=== PATIENT | female | born 1940 | race Caucasian/White ===

== ENCOUNTER 2017-12-07 08:30 | Day surgery (SDC) | payer OTHER, SELFPAY ==
--- NOTE | 2017-12-06 11:56 | POEE_ITS ---
History of Present Illness Chief Complaint: Painless progressive loss of vision, left eye Narrative: The patient is a 77-year-old lady referred by Dr. reed with complaints of progressive decreased vision at both distance and near. She notes significant difficulty with driving at night, as well as glare from sunlight and bright lights. On examination she was noted to have moderate bilateral nuclear cortical and posterior subcapsular cataracts. Of note, she was also noted to have hyperopia with narrow anterior chamber angles and history of glaucoma, currently being treated with latanoprost. NOTE: The Chief Complaint, HPI, Past Medical History, Past Surgical History, Family History, Social History, Medications, and complete Ophthalmic Exam with detailed Assessment and Plan have already been documented in the patient's outpatient ophthalmic exam and are not covered again in detail here. Please see the patient's detailed outpatient ophthalmic exam and/or the History and Physical from the patient's Primary Care Provider. Meds Home Medications Medication Instructions Recorded Confirmed Type Tumeric 1 cap PO DAILY 12/05/17 History albuterol sulfate 2 puff INHALATION Q6H PRN 12/05/17 12/05/17 History aspirin [Aspir-81] 81 mg PO DIRECTED 12/05/17 12/05/17 History atorvastatin 20 mg PO DAILY 12/05/17 12/05/17 History cholecalciferol (vitamin D3) 1,000 unit PO DAILY 12/05/17 12/05/17 History [Vitamin D3] coenzyme Q10 [CoQ-10] 100 mg PO DAILY 12/05/17 12/05/17 History diclofenac sodium [Voltaren] 2 g TOPICAL QID PRN 12/05/17 12/05/17 History dietary supplement 2 cap PO DAILY 12/05/17 12/05/17 History fosinopril 40 mg PO DAILY 12/05/17 12/05/17 History hydrochlorothiazide 12.5 mg PO DAILY 12/05/17 12/05/17 History vitamin B complex 1 cap PO DAILY 12/05/17 12/05/17 History Allergies Allergy/AdvReac Type Severity Reaction Status Date / Time No Known Allergies Allergy Unverified 12/05/17 10:12 Exam OCULAR EXAM:: Visual acuity at distance: 20/40 left eye Pupils: Normally reactive without afferent pupillary defect IOP: 20 OD, 18 OS Extraocular Motility: Normal Pertinent Slit Lamp Findings: Significant for narrow anterior chamber angles, pupils dilate to 5 mm OU. 1+ posterior subcapsular cataracts are present OU. 2 + nuclear and 2+ cortical cataracts are present OU. Dilated Funduscopic Examination: Disc cupping is 0.7 OD, 0.5 OS. The vessels, macula, peripheral retina and vitreous are normal. BRIGHTNESS ACUITY TESTING (BAT):: Off [20/40] Low: 20/50 Medium: 20/60 High: 20/80 Assessment and Plan (1) Cortical cataract of left eye: Current visit: No Status: Acute Assessment: Visually significant cataract, left eye. Plan: Cataract extraction with intraocular lens implantation, left eye (2) Posterior subcapsular age-related cataract of left eye: Current visit: No Status: Acute Assessment: Visually significant cataract, left eye. Plan: Cataract extraction with intraocular lens implantation, left eye (3) Nuclear cataract of left eye: Current visit: No Status: Acute Assessment: Visually significant cataract, left eye. Plan: Cataract extraction with intraocular lens implantation, left eye Note: NOTE:: The details of the planned surgery, including the risks, indications, limitations,expectations,outcome and possible complications were explained to the patient. The patient understands the complications including, but not limited to: infection, hemorrhage, posterior dislocation of the lens or nuclear fragments which may require the intervention of a vitreoretinal surgeon, possible loss of the eye, or from anesthetic complications. The patient has been made aware of the option of not having surgery, that vision following surgery may not be equal to that prior to surgery, and that the planned surgery may not achieve the intended results. Following this discussion, which the patient appeared to understand, the patient wishes to proceed with cataract surgery with lens implantation of the affected eye to improve and maximize vision.
[2017-12-07 09:19] VITALS: BP 182/87; PULSE 70; RESP 16; TEMP 36.6; O2SAT 97
[2017-12-07] MEDS: Lidocaine 2% Jelly 6 ML SYR (11:31)
[2017-12-07] MEDS: Lidocaine 1% Pres-Free 5 ML VIAL (11:39)
[2017-12-07] MEDS: Balanced Salt Soln.-PLUS 500 ML BAG (11:39)
[2017-12-07] MEDS: Povidone-Iodine Ophth 30 ML BTL (12:01)
--- NOTE | 2017-12-07 12:08 | W.PM.DSUDISC ---
Discharge Plan Disposition Patient Disposition: HOME Condition: Good Discharge Details Reason For Visit: CATARACT OS Attending Provider: Sebastian Cosme Primary Care Provider: NO,LOCAL Home Meds and New Rx's Prescriptions: No Action atorvastatin 20 mg Tablet 20 mg PO DAILY RF: 0 aspirin [Aspir-81] 81 mg Tablet,Delayed Release (Dr/Ec) 81 mg PO DIRECTED RF: 0 fosinopril 40 mg Tablet 40 mg PO DAILY RF: 0 hydrochlorothiazide 12.5 mg Capsule 12.5 mg PO DAILY RF: 0 albuterol sulfate 90 mcg/actuation Hfa Aerosol Inhaler 2 puff INHALATION Q6H PRNRF: 0 coenzyme Q10 [CoQ-10] 100 mg Capsule 100 mg PO DAILY RF: 0 diclofenac sodium [Voltaren] 1 % Gel 2 g TOPICAL QID PRNRF: 0 cholecalciferol (vitamin D3) [Vitamin D3] 1,000 unit Capsule 1,000 unit PO DAILY RF: 0 dietary supplement Capsule 2 cap PO DAILY RF: 0 vitamin B complex Capsule 1 cap PO DAILY RF: 0 Tumeric 1 cap PO DAILY RF: 0 Discharge Instructions Stand Alone Forms: Post-op Topical Cataract, Charity Macario (DSU) Discharge Orders Discharge Orders: Discharge Order (Routine); Ordered 12/07/17 Ordered By: Sebastian Cosme DS: Diagnosis Discharge Diagnosis (1) Cortical cataract of left eye: Status: Resolved (2) Posterior subcapsular age-related cataract of left eye: Status: Resolved (3) Nuclear cataract of left eye: Status: Resolved
[2017-12-07 12:28] VITALS: BP 131/77; PULSE 62; RESP 16; TEMP 35.8; O2SAT 94
--- NOTE | 2017-12-07 14:57 | W.PM.OP ---
Date of service: 12/07/17 Time of Service: 15:30 Operative Note Pre-op diagnosis: Cataract, left eye Post-op diagnosis: same Procedure: Cataract extraction using phacoemulsification with intraocular lens implant, left eye Surgeon: Sebastian Cosme Anesthesia: MAC and local (sub-tenon's anesthetic infiltration) Estimated blood loss (mL): 0 Pathology: none sent Complications: None Patient was transported to: same day Patient's condition: stable Implants: Elijah and Elijah / [employer] Tecnis [id number] Indications: Painless progressive vision loss due to cataract, left eye Procedure Description: PREOPERATIVE DIAGNOSIS: Nuclear/cortical/posterior subcapsular cataract, left eye POSTOPERATIVE DIAGNOSIS: Same OPERATION: Cataract extraction using phacoemulsification with posterior chamber intraocular lens implant, left eye. IOL: IOL Curer Foam Rubber/Model: [employer] Tecnis [id number] IOL Power: +22.50 diopters IOL Serial Number: [id number] Optic Diameter: 6.0 mm Haptic/Overall Diameter: 13.0 mm PHACO INFO: [employer] Vision System with OZil and Active Fluidics Cumulative Dispersed Energy (CDE): 5.34 seconds SURGEON: Sebastian Cosme MD, DEVEN ANESTHESIA: Monitored Anesthesia Care (MAC) with local infiltration, monitored by Ld Allen CRNA COMPLICATIONS: None SPECIMENS: None INDICATIONS FOR PROCEDURE: The patient is a 77-year-old lady with history of significant hyperopia and astigmatism who has developed significant bilateral nuclear, cortical, and posterior subcapsular cataract of both eyes. She is significantly symptomatic that she desires cataract surgery in attempt to improve and maximize her vision. PROCEDURE: The correct surgical eye was identified and marked as the left eye and the pupil was dilated in the preoperative area using mydriatics, cycloplegics, and NSAIDS (except in aspirin allergic patients). The dilated pupil size was 7.0 mm. Oral sedation was administered in the form of an Imprimis MKO Melt (midazolam 3mg/ketamine 25mg/ondansetron 2mg). The patient was brought to the operating room where cardiopulmonary monitoring was instituted and surgical time-out was performed, confirming the correct operative eye and IOL power. Topical anesthesia was administered and ophthalmic povidone-iodine 5% was instilled into the conjunctival fornices. The sara-ocular area was prepped with Betadine 10% solution and draped in the usual sterile fashion for intraocular surgery. Steri-strips were used to cover the lashes and lid margins and an adhesive eye drape was placed. Care was taken to isolate the lashes and lid margins under the Steri-strips and adhesive eye drape. A lid speculum was placed between the lids of the operative eye and the Zack-Jasmin operating microscope was swung into place. Baylee scissors were then used to make a conjunctival buttonhole approximately 6mm posterior to the limbus in the inferonasal quadrant. Blunt dissection was carried out to expose bare sclera, and a blunt-tipped sub-tenon?s anesthesia cannula was introduced and passed posteriorly along the globe where non-preserved plain lidocaine was injected into posterior sub-Tenon?s space. A sideport knife was used to make a paracentesis port at the 12 o'clock position. Healon GV was then used to fill the anterior chamber. A 2.4mm keratome knife was used to create a half-thickness groove at the limbus and then to construct a three-plane near-clear corneal tunnel extending 2.0mm into clear cornea at the 3 o'clock position. A flap was raised on the anterior capsule and capsulorhexis forceps were used to complete a continuous curvilinear capsulorhexis of 5.0. Balanced salt solution was then used to perform cortical cleaving hydrodissection and nuclear hydrodelineation until the lens could be freely rotated within the capsular bag. The lens nucleus was then disassembled and removed within the capsular bag and iris plane using phacoemulsification. Residual cortical material was removed using the 45-degree angled silicone I/A tip with 0.3mm port. The posterior capsule was carefully polished to remove as much residual lens epithelial cells as safely possible. The capsular bag was then inflated and the anterior chamber deepened with viscoelastic. The lens implant described above was inserted into the capsular bag using the mana.bo optics levelock injector. A Kuglen hook was used to dial the IOL into position. Residual viscoelastic was then removed using the I/A handpiece, the incisions were stromally hydrated, and the anterior chamber was reformed using BSS. Then 0.4cc of moxifloxacin 1.5mg/ml were injected into the capsular bag and anterior chamber. The lens implant was noted to center nicely within the capsular bag. The incisions were checked with a Weck spear and found to be secure. Several drops of ophthalmic povidone-iodine 5% were then applied to the eye followed by two drops of topical antibiotic. A clear plastic eye shield was placed on the eye. The patient was then returned to Same Day Surgery in stable condition.
--- NOTE | 2017-12-07 15:10 | ROE_ITS ---
Date of service: 12/07/17 Time of Service: 15:30 Operative Note Pre-op diagnosis: Cataract, left eye Post-op diagnosis: same Procedure: Cataract extraction using phacoemulsification with intraocular lens implant, left eye Surgeon: Sebastian Cosme Anesthesia: MAC and local (sub-tenon's anesthetic infiltration) Estimated blood loss (mL): 0 Pathology: none sent Complications: None Patient was transported to: same day Patient's condition: stable Implants: Elijah and Elijah / [employer] Tecnis [id number] Indications: Painless progressive vision loss due to cataract, left eye Procedure Description: PREOPERATIVE DIAGNOSIS: Nuclear/cortical/posterior subcapsular cataract, left eye POSTOPERATIVE DIAGNOSIS: Same OPERATION: Cataract extraction using phacoemulsification with posterior chamber intraocular lens implant, left eye. IOL: IOL Behavioral Analyst/Model: [employer] Tecnis ZCB00 IOL Power: +22.50 diopters IOL Serial Number: [id number] Optic Diameter: 6.0 mm Haptic/Overall Diameter: 13.0 mm PHACO INFO: [employer] Vision System with OZil and Active Fluidics Cumulative Dispersed Energy (CDE): 5.34 seconds SURGEON: Sebastian Cosme MD, DEVEN ANESTHESIA: Monitored Anesthesia Care (MAC) with local infiltration, monitored by Ld Allen CRNA COMPLICATIONS: None SPECIMENS: None INDICATIONS FOR PROCEDURE: The patient is a 77-year-old lady with history of significant hyperopia and astigmatism who has developed significant bilateral nuclear, cortical, and posterior subcapsular cataract of both eyes. She is significantly symptomatic that she desires cataract surgery in attempt to improve and maximize her vision. PROCEDURE: The correct surgical eye was identified and marked as the left eye and the pupil was dilated in the preoperative area using mydriatics, cycloplegics, and NSAIDS (except in aspirin allergic patients). The dilated pupil size was 7.0 mm. Oral sedation was administered in the form of an Imprimis MKO Melt (midazolam 3mg/ketamine 25mg/ondansetron 2mg). The patient was brought to the operating room where cardiopulmonary monitoring was instituted and surgical time-out was performed, confirming the correct operative eye and IOL power. Topical anesthesia was administered and ophthalmic povidone-iodine 5% was instilled into the conjunctival fornices. The sara-ocular area was prepped with Betadine 10% solution and draped in the usual sterile fashion for intraocular surgery. Steri-strips were used to cover the lashes and lid margins and an adhesive eye drape was placed. Care was taken to isolate the lashes and lid margins under the Steri-strips and adhesive eye drape. A lid speculum was placed between the lids of the operative eye and the Zack-Jasmin operating microscope was swung into place. Baylee scissors were then used to make a conjunctival buttonhole approximately 6mm posterior to the limbus in the inferonasal quadrant. Blunt dissection was carried out to expose bare sclera, and a blunt-tipped sub-tenon? s anesthesia cannula was introduced and passed posteriorly along the globe where non-preserved plain lidocaine was injected into posterior sub-Tenon?s space. A sideport knife was used to make a paracentesis port at the 12 o'clock position. Healon GV was then used to fill the anterior chamber. A 2.4mm keratome knife was used to create a half-thickness groove at the limbus and then to construct a three-plane near-clear corneal tunnel extending 2.0mm into clear cornea at the 3 o'clock position. A flap was raised on the anterior capsule and capsulorhexis forceps were used to complete a continuous curvilinear capsulorhexis of 5.0. Balanced salt solution was then used to perform cortical cleaving hydrodissection and nuclear hydrodelineation until the lens could be freely rotated within the capsular bag. The lens nucleus was then disassembled and removed within the capsular bag and iris plane using phacoemulsification. Residual cortical material was removed using the 45-degree angled silicone I/A tip with 0.3mm port. The posterior capsule was carefully polished to remove as much residual lens epithelial cells as safely possible. The capsular bag was then inflated and the anterior chamber deepened with viscoelastic. The lens implant described above was inserted into the capsular bag using the [employer] optics kanatak injector. A Kuglen hook was used to dial the IOL into position. Residual viscoelastic was then removed using the I/A handpiece, the incisions were stromally hydrated, and the anterior chamber was reformed using BSS. Then 0.4cc of moxifloxacin 1.5mg/ml were injected into the capsular bag and anterior chamber. The lens implant was noted to center nicely within the capsular bag. The incisions were checked with a Weck spear and found to be secure. Several drops of ophthalmic povidone-iodine 5% were then applied to the eye followed by two drops of topical antibiotic. A clear plastic eye shield was placed on the eye. The patient was then returned to Same Day Surgery in stable condition.
== END 2017-12-07 12:46 | disposition home or self-care (01) ==
LOC: SUR 08:31
PROVIDERS: Visit Provider Ophthalmology
PROC: (CPT 66984; principal; 2017-12-07 12:05)
DX: H25.12 Age-related nuclear cataract, left eye (principal)
CPT/HCPCS: 66984; V2632

== ENCOUNTER 2017-12-21 09:12 | Day surgery (SDC) | payer OTHER, SELFPAY ==
--- NOTE | 2017-12-20 12:41 | POEE_ITS ---
History of Present Illness Chief Complaint: Progressive decreased vision, right eye Narrative: The patient is a 77-year-old lady who presented with complaints of progressive decreased vision of both distance and near in both eyes. She has significant bleeding and at night. On examination she was noted to have moderate bilateral nuclear cortical and posterior subcapsular cataract with visual acuity of 20/40 in each eye. The option of cataract surgery was offered to the patient and she wished to proceed. She underwent cataract surgery in the left eye on 12/07/17. Postoperatively she has done well. She now presents for cataract surgery in the right eye. NOTE: The Chief Complaint, HPI, Past Medical History, Past Surgical History, Family History, Social History, Medications, and complete Ophthalmic Exam with detailed Assessment and Plan have already been documented in the patient's outpatient ophthalmic record and are not covered again in detail here. Meds Home Medications Medication Instructions Recorded Confirmed Type Tumeric 1 cap PO DAILY 12/05/17 History albuterol sulfate 2 puff INHALATION Q6H PRN 12/05/17 12/07/17 History aspirin [Aspir-81] 81 mg PO DIRECTED 12/05/17 12/07/17 History atorvastatin 20 mg PO DAILY 12/05/17 12/07/17 History cholecalciferol (vitamin D3) 1,000 unit PO DAILY 12/05/17 12/07/17 History [Vitamin D3] coenzyme Q10 [CoQ-10] 100 mg PO DAILY 12/05/17 12/07/17 History diclofenac sodium [Voltaren] 2 g TOPICAL QID PRN 12/05/17 12/07/17 History dietary supplement 2 cap PO DAILY 12/05/17 12/07/17 History fosinopril 40 mg PO DAILY 12/05/17 12/07/17 History hydrochlorothiazide 12.5 mg PO DAILY 12/05/17 12/07/17 History vitamin B complex 1 cap PO DAILY 12/05/17 12/07/17 History Allergies Allergy/AdvReac Type Severity Reaction Status Date / Time No Known Allergies Allergy Unverified 12/05/17 10:12 Exam OCULAR EXAM:: Visual acuity at distance: 20/40 right eye, 20/40 left eye. Pupils: Pupils equal, round, and reactive without afferent pupillary defect IOP: 20 OD, 18 OS. Extraocular Motility: Normal Pertinent Slit Lamp Findings: Significant for narrow anterior chamber angle in the right eye with intermediate chamber depth. Pupils dilate to 5 mm. 1+ posterior subcapsular with 2+ nuclear and cortical cataract in the right eye. Well-positioned PCIOL with clear posterior capsule in the left eye. Dilated Funduscopic Examination: Disc cupping is 0.7 OD, 0.5 OS. The optic nerves have good perfusion and normal color. The retinal vasculature is normal without significant tortuosity or abnormality. The maculas are normal in appearance with normal contour and foveal reflex appropriate for age. The peripheral retina and vitreous are normal. BRIGHTNESS ACUITY TESTING (BAT):: Off right eye 20/40 Low: 20/50 Medium: 20/60 High: 20/200 Assessment and Plan (1) Nuclear sclerotic cataract of right eye: Current visit: No Status: Acute Assessment: Visually significant cataract, right eye. Plan: Cataract extraction with intraocular lens implantation, right eye (2) Cortical cataract of right eye: Current visit: No Status: Acute Assessment: Visually significant cataract, right eye. Plan: Cataract extraction with intraocular lens implantation, right eye (3) Posterior subcapsular age-related cataract, right eye: Current visit: No Status: Acute Assessment: Visually significant cataract, right eye. Plan: Cataract extraction with intraocular lens implantation, right eye Note: NOTE:: The details of the planned surgery, including the risks, indications, limitations,expectations,outcome and possible complications were explained to the patient. The patient understands the complications including, but not limited to: infection, hemorrhage, posterior dislocation of the lens or nuclear fragments which may require the intervention of a vitreoretinal surgeon, possible loss of the eye, or from anesthetic complications. The patient has been made aware of the option of not having surgery, that vision following surgery may not be equal to that prior to surgery, and that the planned surgery may not achieve the intended results. Following this discussion, which the patient appeared to understand, the patient wishes to proceed with cataract surgery with lens implantation of the affected eye to improve and maximize vision.
[2017-12-21 10:05] VITALS: BP 177/93; PULSE 61; RESP 16; TEMP 35.6; O2SAT 98
[2017-12-21] MEDS: Lidocaine 2% Jelly 6 ML SYR (11:28)
[2017-12-21] MEDS: Lidocaine 1% Pres-Free 5 ML VIAL (11:32)
[2017-12-21] MEDS: Povidone-Iodine Ophth 30 ML BTL ×2 (11:34→11:51)
[2017-12-21] MEDS: Balanced Salt Soln.-PLUS 500 ML BAG (11:34)
--- NOTE | 2017-12-21 12:01 | W.PM.DSUDISC ---
Discharge Plan Discharge Details Reason For Visit: CATARACT OD Attending Provider: Sebastian Cosme Primary Care Provider: NO,LOCAL Home Meds and New Rx's Prescriptions: No Action atorvastatin 20 mg Tablet 20 mg PO DAILY RF: 0 aspirin [Aspir-81] 81 mg Tablet,Delayed Release (Dr/Ec) 81 mg PO DAILY RF: 0 fosinopril 40 mg Tablet 40 mg PO DAILY RF: 0 hydrochlorothiazide 12.5 mg Capsule 12.5 mg PO DAILY RF: 0 albuterol sulfate 90 mcg/actuation Hfa Aerosol Inhaler 2 puff INHALATION Q6H PRNRF: 0 coenzyme Q10 [CoQ-10] 100 mg Capsule 100 mg PO DAILY RF: 0 diclofenac sodium [Voltaren] 1 % Gel 2 g TOPICAL QID PRNRF: 0 cholecalciferol (vitamin D3) [Vitamin D3] 1,000 unit Capsule 1,000 unit PO DAILY RF: 0 dietary supplement Capsule 2 cap PO DAILY RF: 0 vitamin B complex Capsule 1 cap PO DAILY RF: 0 Tumeric 1 cap PO DAILY RF: 0 Discharge Instructions Stand Alone Forms: Post-op Topical Cataract, Charity Macario (DSU) DS: Diagnosis Discharge Diagnosis (1) Nuclear sclerotic cataract of right eye: Status: Resolved (2) Cortical cataract of right eye: Status: Resolved (3) Posterior subcapsular age-related cataract, right eye: Status: Resolved
--- NOTE | 2017-12-21 12:01 | W.PM.OP ---
Date of service: 12/21/17 Time of Service: 12:02 Operative Note DATE OF PROCEDURE: 12/21/17 PRE-OP DIAGNOSIS: Cataract, right eye POST-OP DIAGNOSIS: same PROCEDURE: Cataract extraction using phacoemulsification with intraocular lens implant, right eye SURGEON: Sebastian Cosme ANESTHESIA: MAC (with local sub-tenon's anesthetic injection) PATHOLOGY: none sent COMPLICATIONS: None Patient was transported to: same day Patient's condition: stable Indications: Progressive decreased vision due to cataract, right eye Procedure Description: CATARACT SURGERY OPERATIVE REPORT PREOPERATIVE DIAGNOSIS: Nuclear/cortical/posterior subcapsular cataract, right eye, symptomatic POSTOPERATIVE DIAGNOSIS: Same OPERATION: Cataract extraction using phacoemulsification with posterior chamber intraocular lens implant, right eye. IOL: IOL Human Projectile/Model: [employer] Elijah / LALO Tecnis ZCB00 IOL Power: + 17.0 diopters IOL Serial Number: [id number] Optic Diameter: 6.0mm Haptic/Overall Diameter: 13.00mm PHACO INFO: [employer] Vision System with OZil and Active Fluidics Cumulative Dispersed Energy (CDE): 7.74 seconds SURGEON: Sebastian Cosme MD, DEVEN ANESTHESIA: Monitored Anesthesia Care (MAC), with local sub-tenon's anesthetic infiltration COMPLICATIONS: None SPECIMENS: None INDICATIONS FOR PROCEDURE: The patient is a 77-year-old lady with history of cataracts, hyperopia, and narrow angles who has developed significant bilateral nuclear cortical and posterior subcapsular cataract. She is Ardie undergone cataract surgery in her left eye and is doing well postoperatively. She now presents for cataract surgery in the right eye area PROCEDURE: The correct surgical eye was identified and marked as the right eye and the pupil was dilated in the preoperative area using mydriatics, cycloplegics, and NSAIDS (except in aspirin allergic patients). The dilated pupil size was 5.5 mm. Oral sedation was administered in the form of an Imprimis MKO Melt (midazolam 3mg/ketamine 25mg/ondansetron 2mg). The patient was brought to the operating room where cardiopulmonary monitoring was instituted and surgical time-out was performed, confirming the correct operative eye and IOL power. Topical anesthesia was administered and ophthalmic povidone-iodine 5% was instilled into the conjunctival fornices. Lidocaine gel was applied to the cornea and the sara-ocular area was prepped with Betadine 10% solution and draped in the usual sterile fashion for intraocular surgery. Steri-strips were used to cover the lashes and lid margins and an adhesive eye drape was placed. Care was taken to isolate the lashes and lid margins under the Steri-strips and adhesive eye drape. A lid speculum was placed between the lids of the operative eye and the Zack-Jasmin operating microscope was maneuvered into position. Baylee scissors were then used to make a conjunctival buttonhole approximately 6mm posterior to the limbus in the inferonasal quadrant. Blunt dissection was carried out to expose bare sclera, and a blunt-tipped sub-tenon?s anesthesia cannula was introduced and passed posteriorly along the globe where non-preserved plain lidocaine was injected into posterior sub-Tenon?s space. A sideport knife was used to make a paracentesis port at the 7:00 postion and the anterior chamber was filled with Healon GV. A 2.4mm keratome knife was used to create a half-thickness groove at the limbus and then to construct a three-plane near-clear corneal tunnel extending 2.0mm into clear cornea at the 10:00 position. A flap was raised on the anterior capsule and capsulorhexis forceps were used to complete a continuous curvilinear capsulorhexis of 4.5 mm. Balanced salt solution was then used to perform cortical cleaving hydrodissection and nuclear hydrodelineation until the lens could be freely rotated within the capsular bag. The lens nucleus was then disassembled and removed within the capsular bag and iris plane using phacoemulsification. Residual cortical material was removed using the 45-degree angled silicone I/A tip with 0.3mm port. The posterior capsule was carefully polished to remove as much residual lens epithelial cells as safely possible. The capsular bag was then inflated and the anterior chamber deepened with viscoelastic. The lens implant described above was inserted into the capsular bag using the LALO [place] Injector. A Kuglen hook was used to dial the IOL into position. Residual viscoelastic was then removed first from posterior to the IOL, then from the anterior chamber using the I/A handpiece. The lens implant was noted to center nicely within the capsular bag. The incisions were stromally hydrated, and the anterior chamber was reformed using BSS. Then 0.4cc of moxifloxacin 1.5mg/ml were injected into the capsular bag and anterior chamber. The incisions were checked with a Weck spear and found to be secure. Several drops of ophthalmic povidone-iodine 5% were then applied to the eye followed by two drops of Imprimis combination moxifloxacin/dexamethasone solution. The drapes were removed and a clear plastic protective eye shield was placed over the eye. The patient was then returned to Same Day Surgery in stable condition.
--- NOTE | 2017-12-21 12:05 | ROE_ITS ---
Date of service: 12/21/17 Time of Service: 12:02 Operative Note DATE OF PROCEDURE: 12/21/17 PRE-OP DIAGNOSIS: Cataract, right eye POST-OP DIAGNOSIS: same PROCEDURE: Cataract extraction using phacoemulsification with intraocular lens implant, right eye SURGEON: Sebastian Cosme ANESTHESIA: MAC (with local sub-tenon's anesthetic injection) PATHOLOGY: none sent COMPLICATIONS: None Patient was transported to: same day Patient's condition: stable Indications: Progressive decreased vision due to cataract, right eye Procedure Description: CATARACT SURGERY OPERATIVE REPORT PREOPERATIVE DIAGNOSIS: Nuclear/cortical/posterior subcapsular cataract, right eye, symptomatic POSTOPERATIVE DIAGNOSIS: Same OPERATION: Cataract extraction using phacoemulsification with posterior chamber intraocular lens implant, right eye. IOL: IOL [employer] Officer/Model: [employer] Elijah / LALO Tecnis ZCB00 IOL Power: + 17.0 diopters IOL Serial Number: [id number] Optic Diameter: 6.0mm Haptic/Overall Diameter: 13.00mm PHACO INFO: [employer] Vision System with OZil and Active Fluidics Cumulative Dispersed Energy (CDE): 7.74 seconds SURGEON: Sebastian Cosme MD, DEVEN ANESTHESIA: Monitored Anesthesia Care (MAC), with local sub-tenon's anesthetic infiltration COMPLICATIONS: None SPECIMENS: None INDICATIONS FOR PROCEDURE: The patient is a 77-year-old lady with history of cataracts, hyperopia, and narrow angles who has developed significant bilateral nuclear cortical and posterior subcapsular cataract. She is Ardie undergone cataract surgery in her left eye and is doing well postoperatively. She now presents for cataract surgery in the right eye area PROCEDURE: The correct surgical eye was identified and marked as the right eye and the pupil was dilated in the preoperative area using mydriatics, cycloplegics, and NSAIDS (except in aspirin allergic patients). The dilated pupil size was 5.5 mm. Oral sedation was administered in the form of an Imprimis MKO Melt (midazolam 3mg/ketamine 25mg/ondansetron 2mg). The patient was brought to the operating room where cardiopulmonary monitoring was instituted and surgical time-out was performed, confirming the correct operative eye and IOL power. Topical anesthesia was administered and ophthalmic povidone-iodine 5% was instilled into the conjunctival fornices. Lidocaine gel was applied to the cornea and the sara-ocular area was prepped with Betadine 10% solution and draped in the usual sterile fashion for intraocular surgery. Steri-strips were used to cover the lashes and lid margins and an adhesive eye drape was placed. Care was taken to isolate the lashes and lid margins under the Steri-strips and adhesive eye drape. A lid speculum was placed between the lids of the operative eye and the Zack-Jasmin operating microscope was maneuvered into position. Baylee scissors were then used to make a conjunctival buttonhole approximately 6mm posterior to the limbus in the inferonasal quadrant. Blunt dissection was carried out to expose bare sclera, and a blunt-tipped sub-tenon? s anesthesia cannula was introduced and passed posteriorly along the globe where non-preserved plain lidocaine was injected into posterior sub-Tenon?s space. A sideport knife was used to make a paracentesis port at the 7:00 postion and the anterior chamber was filled with Healon GV. A 2.4mm keratome knife was used to create a half-thickness groove at the limbus and then to construct a three-plane near-clear corneal tunnel extending 2.0mm into clear cornea at the 10:00 position. A flap was raised on the anterior capsule and capsulorhexis forceps were used to complete a continuous curvilinear capsulorhexis of 4.5 mm. Balanced salt solution was then used to perform cortical cleaving hydrodissection and nuclear hydrodelineation until the lens could be freely rotated within the capsular bag. The lens nucleus was then disassembled and removed within the capsular bag and iris plane using phacoemulsification. Residual cortical material was removed using the 45-degree angled silicone I/A tip with 0.3mm port. The posterior capsule was carefully polished to remove as much residual lens epithelial cells as safely possible. The capsular bag was then inflated and the anterior chamber deepened with viscoelastic. The lens implant described above was inserted into the capsular bag using the LALO [place] Injector. A Kuglen hook was used to dial the IOL into position. Residual viscoelastic was then removed first from posterior to the IOL, then from the anterior chamber using the I/A handpiece. The lens implant was noted to center nicely within the capsular bag. The incisions were stromally hydrated , and the anterior chamber was reformed using BSS. Then 0.4cc of moxifloxacin 1.5mg/ml were injected into the capsular bag and anterior chamber. The incisions were checked with a Weck spear and found to be secure. Several drops of ophthalmic povidone-iodine 5% were then applied to the eye followed by two drops of Imprimis combination moxifloxacin/dexamethasone solution. The drapes were removed and a clear plastic protective eye shield was placed over the eye. The patient was then returned to Same Day Surgery in stable condition.
[2017-12-21 12:29] VITALS: BP 148/84; PULSE 62; RESP 16; TEMP 35.9; O2SAT 97
== END 2017-12-21 13:15 | disposition home or self-care (01) ==
LOC: SUR 09:13
PROVIDERS: Visit Provider Ophthalmology
PROC: (CPT 66984; principal; 2017-12-21 12:05)
DX: H25.11 Age-related nuclear cataract, right eye (principal); H25.011 Cortical age-related cataract, right eye; H25.041 Posterior subcapsular polar age-related cataract, right eye; H52.01 Hypermetropia, right eye; H40.031 Anatomical narrow angle, right eye; Z98.42 Cataract extraction status, left eye; Z96.1 Presence of intraocular lens; I10 Essential (primary) hypertension
CPT/HCPCS: 66984; V2632